=== PATIENT | female | born 1985 | race Caucasian/White ===

== ENCOUNTER 2016-10-17 09:55 | Emergency (ER) | payer MEDICAID ==
[~2016-10-17] VITALS: Ht 157.5 cm; Wt 74.0 kg
[2016-10-17 10:12] VITALS: Ht 157.5 cm; Wt 74.0 kg
[2016-10-17] MEDS ORDERED: IBUPROFEN 600 MG TAB PO ONE (11:00)
[2016-10-17] MEDS ORDERED: CEPH-443 PO (14:10)
[2016-10-17 14:16] VITALS: BP 128/78; RESP 17
--- NOTE | 2016-10-17 17:10 | RADRPT ---
PROCEDURE: Left breast ultrasound. CLINICAL INDICATION: Breast-feeding. Left wrist pain and swelling. TECHNIQUE: High-resolution sonography of the left breast was performed in the axial and sagittal p lanes. COMPARISON: No prior study is available for comparison. FINDINGS: There are multiple dilated ducts in the left breast periareolar region. In the left breast 6 o'clock position, there is a cystic structure measuring 1.5 x 0.7 cm. In the l eft breast 9 o'clock position, there is a cystic structure measuring 1.5 x 0.7 cm, and a cystic stru cture measuring 1.1 x 0.6 cm. In addition, in the 3 o'clock position to 9 o'clock position. There i s heterogeneity of the breast parenchyma. There may be a region of edema or irregular fluid collect ion measuring 1.2 x 0.7 cm. IMPRESSION: 1. Dilated ducts in the left breast periareolar region. 2. Benign cystic structures in the 6 o'clock and 9 o'clock positions of the left breast. 3. Heterogeneity of the breast parenchyma with edema and possible irregular fluid collection measur ing 1.2 x 0.7 cm in the 3 o'clock to 9 o'clock position of the left breast. 4. Any further management regarding any breast symptoms should be based upon clinical grounds. RPTAT: QQ .Vignesh Lam MD, Date Time Electronically viewed and signed by .Vignesh Lam MD, on 10/17/2016 17:10 .R/
--- NOTE | 2016-10-19 12:31 | ERD ---
ER Documentation Chief Complaint Date/Time DATE: 10/17/16 Chief Complaint Left breast pain. Patient is currently . HPI The patient is a 31-year-old female A0 who presents to the Emergency Department with complaint of left breast pain since yesterday. The patient reports that since yesterday she has developed warmth, tenderness and erythema to the lateral aspect of the left breast. She notes that she is currently , and does experience mildly increased pain upon . She denies any fevers, chills, nausea or vomiting. Denies any new masses to the breast. Denies any nipple discharge or bleeding. Last menstrual period . ROS All systems reviewed and are negative except as per history of present illness. Medications Home Meds Active Scripts Cephalexin* (Keflex*) 500 Mg Capsule, 500 MG PO QID for 10 Days, CAP Prov:AMADO ESPINAL PA-C 10/17/16 Allergies Allergies: Coded Allergies: No Known Allergy (Unverified , 08/19/12) PMhx/Soc Medical and Surgical Hx: pt denies Medical Hx, pt denies Surgical Hx History of Surgery: No Anesthesia Reaction: No Hx Neurological Disorder: No Hx Respiratory Disorders: No Hx Cardiac Disorders: No Hx Psychiatric Problems: No Hx Miscellaneous Medical Probl: No Hx Alcohol Use: No Hx Substance Use: No Hx Tobacco Use: No Smoking Status: Never smoker Physical Exam Vitals Vital Signs Date Time Temp Pulse Resp B/P Pulse Ox O2 Delivery O2 Flow Rate FiO2 10/17/16 14:16 17 128/78 100 Room Air 10/17/16 10:12 98.8 105 20 126/80 97 Physical Exam GENERAL: Well-developed, well-nourished, in no acute distress HEENT: Head is normocephalic, atraumatic. No scleral pallor or icterus. Pupils equal, round and reactive to light. Conjunctiva pink. Moist mucous membranes. NECK: Supple. No masses, no tenderness, no lymphadenopathy. BREAST: Left lateral breast with mild erythema, warmth and tenderness. No masses palpated. No discharge. No fluctuance or induration appreciated. Breasts move symmetrically. No skin retractions. No drainage or bleeding from the nipples. RESPIRATORY: Lungs are clear to auscultation bilaterally. Equal breath sounds. Normal expiratory effort. CARDIOVASCULAR: Regular rate and rhythm. S1 and S2 normal. GASTROINTESTINAL: Abdomen is soft, nontender, and nondistended. FLANK: No CVA tenderness, no mass or swelling. EXTREMITIES: No clubbing, cyanosis, or edema. Normal skin perfusion. Moving all extremities. Distal pulses are palpable, 2+ bilaterally. Capillary refill is less than 2 seconds. NEUROLOGIC: The patient is alert, awake, and oriented x 3. No focal neurologic deficits. Speech is normal. INTEGUMENT: Skin is clean, dry and intact. PSYCHIATRIC: Appropriate; Cooperative. Results 24 hrs Current Medications Medications (Trade) Dose Ordered Sig/Nomi Route PRN Reason Start Time Stop Time Status Last Admin Dose Admin Ibuprofen (Motrin) 600 mg ONCE ONCE PO 10/17/16 11:00 10/17/16 11:01 DC 10/17/16 11:03 Procedures/MDM DIAGNOSTIC TESTS AND INTERPRETATION: PROCEDURE: Left breast ultrasound. CLINICAL INDICATION: Breast-feeding. Left wrist pain and swelling. TECHNIQUE: High-resolution sonography of the left breast was performed in the axial and sagittal planes. COMPARISON: No prior study is available for comparison. FINDINGS: There are multiple dilated ducts in the left breast periareolar region. In the left breast 6 o'clock position, there is a cystic structure measuring 1.5 x 0.7 cm. In the left breast 9 o'clock position, there is a cystic structure measuring 1.5 x 0.7 cm, and a cystic structure measuring 1.1 x 0.6 cm. In addition, in the 3 o'clock position to 9 o'clock position. There is heterogeneity of the breast parenchyma. There may be a region of edema or irregular fluid collection measuring 1.2 x 0.7 cm. IMPRESSION: 1. Dilated ducts in the left breast periareolar region. 2. Benign cystic structures in the 6 o'clock and 9 o'clock positions of the left breast. 3. Heterogeneity of the breast parenchyma with edema and possible irregular fluid collection measuring 1.2 x 0.7 cm in the 3 o'clock to 9 o'clock position of the left breast. 4. Any further management regarding any breast symptoms should be based upon clinical grounds. .Vignesh Lam MD, MD Date Time Electronically viewed and signed by .Vignesh Lam MD, MD on 10/17/2016 17:10 MEDICAL DECISION MAKING: This is a 31-year-old female who is currently presenting to the Emergency Department with erythema, warmth and tenderness to the left lateral breast since yesterday. Findings most consistent with acute mastitis. Ultrasound imaging ordered, which revealed dilated ducts in the left breast periareolar region, benign cystic structures in the 6 o' clock and 9 o'clock positions of the left breast, and heterogeneity of the breast parenchyma with edema and possible irregular fluid collection measuring 1.2 x 0.7 cm in the 3 o'clock to 9 o'clock position of the left breast. However , no large drainable abscesses noted at this time (per Dr. Lam, radiologist). After erst and administration of Ibuprofen, the patient reports no new complaints. Upon my review and interpretation of the patient's presentation and overall ER course, I believe the patient's symptoms are most consistent with acute mastitis. At this time the patient is in stable condition and therefore she can be discharged home with prescription for Keflex and strict return precautions for signs of deteriorating worsening condition. She is advised to follow up with her [facility] OPERATOR and/or primary care provider within 2-3 days for re- evaluation and further management. I shared my medical decision making and plan with the patient at length and in great detail, and the patient verbally understands and agrees with the plan for further observation and care as an outpatient. At the time of discharge, all questions were answered. Departure Diagnosis: Primary Impression: Mastitis, left, acute Condition: Stable Patient Instructions: Mastitis Additional Instructions: Llame al doctor CHARLIE y kirk elizabeth JUSTINO PARA DENTRO DE 2-3 QUIGLEY.Dgale a la secretaria que nosotros le instruimos hacer esta justino.Avise o llame si de la rosa condicin se empeora antes de la justino. Regresa aqui si peor o no mejor. AMADO ESPINAL PA-C Oct 19, 2016 12:31
== END 2016-10-17 14:16 | disposition home or self-care (01) ==
LOC: FTE 09:55
DX: N61.0 Mastitis without abscess (principal)
CPT/HCPCS: 76642; Z7502; Z7610

== ENCOUNTER 2018-02-04 14:18 | Emergency (ER) | END 2018-02-04 16:33 | disposition home or self-care (01) ==